=== PATIENT | male | born 1960 | race Caucasian/White ===

== ENCOUNTER 2017-07-15 00:16 | Observation (INO) | payer BC ==
[2017-07-15 00:26] VITALS: BMI 31.4
[2017-07-15] MEDS ORDERED: NS 1000 ML 1,000 ML ONE ×2 (01:27→02:47)
[2017-07-15] MEDS ORDERED: ZOFRAN INJ 4 MG VIAL ONE (01:27)
[2017-07-15] MEDS ORDERED: NS 1000 ML 1,000 ML IV ONE ×2 (01:28→03:31)
[2017-07-15] MEDS ORDERED: ZOFRAN INJ 4 MG VIAL IVP ONE (01:28)
[2017-07-15] MEDS ORDERED: MORPHINE SULFATE INJ 4 MG IVP ONE (02:52)
[2017-07-15] MEDS ORDERED: PEPCID 20 MG IV PREMIX* 20 MG/50 ML BAG IV ONE ×2 (02:52→03:04)
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
[2017-07-15 02:59] LABS: ALBUMIN 3.2 g/dL (3.4-5.0); CALCIUM 8.3 mg/dL (8.5-10.1); COR CA(FOR HYPOALB) 8.9 mg/dL (8.5-10.1); CREATININE 2.17 mg/dL (0.70-1.30); TOTAL PROTEIN 6.9 g/dL (6.4-8.2)
[2017-07-15 03:02] LABS: BASOPHILS # (AUTO) 0.1 X10^3/uL (0.0-0.1); BASOPHILS % (AUTO) 0.3 % (0.2-1.0); EOSINOPHILS # (AUTO) 5.6 x10^3/uL (0.0-0.2); EOSINOPHILS % (AUTO) 22.6 % (0.9-2.9); LYMPHOCYTES # (AUTO) 2.5 X10^3/uL (1.3-2.9); MEAN CORPUSCULAR HEMOGLOBIN 28.6 pg (27.0-34.0); MEAN CORPUSCULAR HGB CONC 34.2 g/dL (33.0-35.0); MEAN CORPUSCULAR VOLUME 83.5 fL (80.0-100.0); MEAN PLATELET VOLUME 9.9 fL (7.4-11.0); MONOCYTES # (AUTO) 1.4 x10^3/uL (0.3-0.8); MONOCYTES % (AUTO) 5.8 % (0.0-13.0); NEUTROPHILS # (AUTO) 15.2 x10^3/uL (2.2-4.8); NEUTROPHILS % (AUTO) 61.3 % (42.0-75.0); PLATELET COUNT 366 X10^3/uL (150.0-450.0); RED BLOOD COUNT 6.76 X10^6/uL (4.7-6.0); RED CELL DISTRIBUTION WIDTH 13.8 % (11.6-16.5); WHITE BLOOD COUNT 24.9 X10^3/uL (3.6-10.0)
[2017-07-15] MEDS ORDERED: MORPHINE SULFATE INJ 4 MG ONE (03:05)
[2017-07-15 03:11] LABS: HEMATOCRIT 56.4 % (42.0-54.0); HEMOGLOBIN 19.3 g/dL (13.5-18.0)
--- NOTE | 2017-07-15 03:25 | RAD ---
Acute abdominal series Indication: Nausea vomiting and diarrhea Comparison: None available Findings: The trachea is midline. The cardiac silhouette is unremarkable. The lungs are clear without focal i nfiltrate or effusion. The bony thorax is unremarkable. Left chest wall pacemaker is noted in expec roxana positioning. No significant fluid is noted within the loops of small bowel with multiple air-fluid levels within t he entire colon. No pathological soft tissue mass or calcification can be observed. The bony struct ures are grossly intact. IMPRESSION: 1. No acute cardiopulmonary disease. 2. Lack of gas within the small bowel with air-fluid levels throughout the colon is most consistent with fluid-filled loops of small bowel with an enterocolitis. No evidence of obstruction; however, in creased fluid within the colon is in keeping with the history of diarrhea. Reported By:
[2017-07-15 03:29] LABS: BAND NEUTROPHILS % 3 % (0-10); PLATELET MORPHOLOGY COMMENT NORMAL (NORMAL)
[2017-07-15 03:53] LABS: STOOL FOR WBC POSITIVE (NEGATIVE)
[2017-07-15] MEDS ORDERED: CIPRO IV 400 MG PREMIX* 400 MG/200 ML IV.SOLN. IV ONE ×2 (04:28→04:34)
[2017-07-15] MEDS: NS 1000 ML 1,000 ML IV SCH ×4 (04:41→22:25)
[2017-07-15] MEDS ORDERED: FLAGYL IV PREMIX 500 MG BAG 500 MG/100 ML BAG IV ONE ×2 (05:58→05:59)
[2017-07-15] MEDS ORDERED: PHENERGAN INJ 25 MG IVP PRN (06:36)
[2017-07-15] MEDS ORDERED: TYLENOL 325 MG TAB PO PRN (06:36)
[2017-07-15] MEDS ORDERED: ZOFRAN INJ 4 MG VIAL IVP PRN (06:36)
[2017-07-15] MEDS: FLAGYL IV PREMIX 500 MG BAG 500 MG/100 ML BAG IV SCH ×3 (09:51→20:23)
[2017-07-15] MEDS: MORPHINE SULFATE INJ 2 MG INJ IVP PRN ×3 (09:52→20:36)
[2017-07-15] MEDS: CIPRO IV 400 MG PREMIX* 400 MG/200 ML IV.SOLN. IV SCH ×2 (09:52→20:23)
[2017-07-15 10:00] LABS: CRYPTOSPORIDIUM PARVUM ANTIGEN NEGATIVE (NEGATIVE); GIARDIA LAMBLIA ANTIGEN NEGATIVE (NEGATIVE)
[2017-07-15 14:06] LABS: BILIRUBIN,URINE NEGATIVE (NEGATIVE); BLOOD/HEMOGLOBIN,URINE NEGATIVE (NEGATIVE); GLUCOSE, URINE 3+ (NEGATIVE); KETONES,URINE NEGATIVE (NEGATIVE); LEUKOCYTE ESTERASE ,URINE 1+ (NEGATIVE); NITRITES,URINE NEGATIVE (NEGATIVE); PROTEIN,URINE NEGATIVE (NEGATIVE); UROBILINOGEN,URINE NORMAL (NORMAL)
[2017-07-15 14:14] LABS: APPEARANCE,URINE CLEAR (CLEAR); BACTERIA,URINE TRACE /HPF (NEGATIVE); COLOR,URINE YELLOW (YELLOW); RBC,URINE NONE SEEN /HPF (NEGATIVE); SQUAMOUS EPITHELIAL CELL,UR FEW /HPF (NEGATIVE)
[2017-07-15] MEDS: PEPCID 20 MG IV PREMIX* 20 MG/50 ML BAG IV PRN (14:38)
[2017-07-15] MEDS ORDERED: PATIENT'S HOME MEDICATION (Melatonin [Melatonin] 10 MG) PO PRN (15:50)
[2017-07-15] MEDS ORDERED: ZOLOFT PO ONE (16:28)
[2017-07-15] MEDS: ZOLOFT PO SCH (16:42)
[2017-07-15] MEDS: CRESTOR TAB 10 MG PO SCH (20:23)
[2017-07-16] MEDS: NS 1000 ML 1,000 ML IV SCH ×6 (02:57→19:43)
[2017-07-16] MEDS: FLAGYL IV PREMIX 500 MG BAG 500 MG/100 ML BAG IV SCH ×4 (02:57→20:19)
[2017-07-16 04:34] LABS: BASOPHILS % (AUTO) 0.2 % (0.2-1.0); EOSINOPHILS # (AUTO) 3.4 x10^3/uL (0.0-0.2); EOSINOPHILS % (AUTO) 22.8 % (0.9-2.9); HEMATOCRIT 49.2 % (42.0-54.0); HEMOGLOBIN 16.8 g/dL (13.5-18.0); LYMPHOCYTES # (AUTO) 2.5 X10^3/uL (1.3-2.9); LYMPHOCYTES % (AUTO) 16.5 % (21.0-51.0); MEAN CORPUSCULAR HEMOGLOBIN 28.5 pg (27.0-34.0); MEAN CORPUSCULAR HGB CONC 34.2 g/dL (33.0-35.0); MEAN CORPUSCULAR VOLUME 83.3 fL (80.0-100.0); MEAN PLATELET VOLUME 9.1 fL (7.4-11.0); NEUTROPHILS # (AUTO) 7.9 x10^3/uL (2.2-4.8); NEUTROPHILS % (AUTO) 53.5 % (42.0-75.0); PLATELET COUNT 239 X10^3/uL (150.0-450.0); RED BLOOD COUNT 5.91 X10^6/uL (4.7-6.0); RED CELL DISTRIBUTION WIDTH 13.4 % (11.6-16.5); WHITE BLOOD COUNT 14.9 X10^3/uL (3.6-10.0)
[2017-07-16 05:00] LABS: ALANINE AMINOTRANSFERASE 30 Units/L (12-78); ALBUMIN 2.8 g/dL (3.4-5.0); ALKALINE PHOSPHATASE 109 Units/L (46-116); ASPARTATE AMINO TRANSFERASE 16 Units/L (15-37); BLOOD UREA NITROGEN 19 mg/dL (7-18); CALCIUM 7.8 mg/dL (8.5-10.1); CARBON DIOXIDE 23.2 mmol/L (21-32); CHLORIDE 106 mmol/L (98-107); COR CA(FOR HYPOALB) 8.8 mg/dL (8.5-10.1); COR NA(FOR HYPERGLY) 140 mmol/L (136-145); CREATININE 1.16 mg/dL (0.70-1.30); SODIUM 138 mmol/L (136-145); eGFR BLACK RACES > 60 (>60); eGFR NON BLACK RACES > 60 (>60)
[2017-07-16 06:12] LABS: BAND NEUTROPHILS % 0 % (0-10); PLATELET MORPHOLOGY COMMENT NORMAL (NORMAL)
[2017-07-16] MEDS ORDERED: ZOLOFT PO ONE (09:03)
[2017-07-16] MEDS: TOPROL XL PO SCH (09:35)
[2017-07-16] MEDS: ZOLOFT PO SCH (09:35)
[2017-07-16] MEDS: CIPRO IV 400 MG PREMIX* 400 MG/200 ML IV.SOLN. IV SCH ×2 (09:36→20:19)
[2017-07-16] MEDS: PLAVIX PO SCH (09:36)
[2017-07-16] MEDS ORDERED: LOMOTIL PO STA (15:46)
[2017-07-16] MEDS ORDERED: LOMOTIL PO PRN (15:47)
[2017-07-16] MEDS: HumuLIN R SC PRN (17:36)
[2017-07-16] MEDS: CRESTOR TAB 10 MG PO SCH (20:18)
[2017-07-17] MEDS: NS 1000 ML 1,000 ML IV SCH ×3 (01:41→20:50)
[2017-07-17] MEDS: PEPCID 20 MG IV PREMIX* 20 MG/50 ML BAG IV PRN (01:42)
[2017-07-17] MEDS: FLAGYL IV PREMIX 500 MG BAG 500 MG/100 ML BAG IV SCH ×4 (03:50→20:52)
[2017-07-17 04:28] LABS: BASOPHILS % (AUTO) 0.2 % (0.2-1.0); EOSINOPHILS # (AUTO) 3.5 x10^3/uL (0.0-0.2); EOSINOPHILS % (AUTO) 26.6 % (0.9-2.9); HEMATOCRIT 41.3 % (42.0-54.0); HEMOGLOBIN 14.2 g/dL (13.5-18.0); LYMPHOCYTES # (AUTO) 2.5 X10^3/uL (1.3-2.9); LYMPHOCYTES % (AUTO) 18.5 % (21.0-51.0); MEAN CORPUSCULAR HEMOGLOBIN 28.2 pg (27.0-34.0); MEAN CORPUSCULAR HGB CONC 34.3 g/dL (33.0-35.0); MEAN CORPUSCULAR VOLUME 82.1 fL (80.0-100.0); MEAN PLATELET VOLUME 9.2 fL (7.4-11.0); MONOCYTES # (AUTO) 0.8 x10^3/uL (0.3-0.8); MONOCYTES % (AUTO) 5.7 % (0.0-13.0); NEUTROPHILS # (AUTO) 6.5 x10^3/uL (2.2-4.8); PLATELET COUNT 202 X10^3/uL (150.0-450.0); RED BLOOD COUNT 5.03 X10^6/uL (4.7-6.0); RED CELL DISTRIBUTION WIDTH 13.1 % (11.6-16.5); WHITE BLOOD COUNT 13.3 X10^3/uL (3.6-10.0)
[2017-07-17 04:35] LABS: BLOOD UREA NITROGEN 8 mg/dL (7-18); CALCIUM 7.7 mg/dL (8.5-10.1); CARBON DIOXIDE 22.8 mmol/L (21-32); CHLORIDE 112 mmol/L (98-107); COR NA(FOR HYPERGLY) 145 mmol/L (136-145); CREATININE 0.86 mg/dL (0.70-1.30); SODIUM 144 mmol/L (136-145); eGFR BLACK RACES > 60 (>60); eGFR NON BLACK RACES > 60 (>60)
[2017-07-17 04:57] LABS: PLATELET MORPHOLOGY COMMENT NORMAL (NORMAL)
[2017-07-17 05:04] LABS: ALANINE AMINOTRANSFERASE 28 Units/L (12-78); ALBUMIN 2.4 g/dL (3.4-5.0); ALKALINE PHOSPHATASE 90 Units/L (46-116); ASPARTATE AMINO TRANSFERASE 16 Units/L (15-37); TOTAL PROTEIN 5.2 g/dL (6.4-8.2)
[2017-07-17] MEDS ORDERED: K-LYTE EFFERVESCENT PO ONE (05:41)
[2017-07-17] MEDS ORDERED: POTASSIUM CHLORIDE LIQ 20 MEQ UDC PO PRN (07:33)
[2017-07-17] MEDS ORDERED: MAGNESIUM SULFATE 1 GM/100 mL PREMIX 1 GM/100 ML BAG IV PRN (07:33)
[2017-07-17] MEDS ORDERED: K-RIDER 10 MEQ/NS 100 ML 10 MEQ/100 ML BAG IV PRN (07:33)
[2017-07-17] MEDS ORDERED: K-LYTE EFFERVESCENT PO PRN (07:33)
[2017-07-17] MEDS ORDERED: POTASSIUM CHL 60 MEQ/NS 0.45% 500 ML IV NR (08:00)
[2017-07-17] MEDS ORDERED: POTASSIUM CHL 40 MEQ/NS 0.45% 500 ML IV PRN (08:00)
[2017-07-17] MEDS ORDERED: ZOLOFT PO ONE (09:05)
[2017-07-17] MEDS: TOPROL XL PO SCH (09:24)
[2017-07-17] MEDS: MAG-OX TAB PO PRN ×2 (09:24→15:14)
[2017-07-17] MEDS: ZOLOFT PO SCH (09:25)
[2017-07-17] MEDS: PLAVIX PO SCH (09:27)
[2017-07-17] MEDS: CIPRO IV 400 MG PREMIX* 400 MG/200 ML IV.SOLN. IV SCH ×2 (09:28→20:51)
[2017-07-17] MEDS: SNACK - Diabetic Appropriate PO SCH ×2 (09:29→20:57)
[2017-07-17] MEDS: HumuLIN R SC PRN (12:29)
[2017-07-17] MEDS: CRESTOR TAB 10 MG PO SCH (20:51)
[2017-07-18] MEDS: FLAGYL IV PREMIX 500 MG BAG 500 MG/100 ML BAG IV SCH ×2 (03:03→10:10)
[2017-07-18 04:37] LABS: BASOPHILS % (AUTO) 0.3 % (0.2-1.0); EOSINOPHILS # (AUTO) 4.1 x10^3/uL (0.0-0.2); HEMATOCRIT 40.3 % (42.0-54.0); HEMOGLOBIN 13.8 g/dL (13.5-18.0); LYMPHOCYTES # (AUTO) 3.1 X10^3/uL (1.3-2.9); LYMPHOCYTES % (AUTO) 22.5 % (21.0-51.0); MEAN CORPUSCULAR HEMOGLOBIN 28.4 pg (27.0-34.0); MEAN CORPUSCULAR HGB CONC 34.4 g/dL (33.0-35.0); MEAN CORPUSCULAR VOLUME 82.7 fL (80.0-100.0); MEAN PLATELET VOLUME 9.1 fL (7.4-11.0); MONOCYTES # (AUTO) 0.7 x10^3/uL (0.3-0.8); MONOCYTES % (AUTO) 5.3 % (0.0-13.0); NEUTROPHILS # (AUTO) 5.7 x10^3/uL (2.2-4.8); NEUTROPHILS % (AUTO) 41.9 % (42.0-75.0); PLATELET COUNT 188 X10^3/uL (150.0-450.0); RED BLOOD COUNT 4.87 X10^6/uL (4.7-6.0); RED CELL DISTRIBUTION WIDTH 13.7 % (11.6-16.5); WHITE BLOOD COUNT 13.6 X10^3/uL (3.6-10.0)
[2017-07-18 04:47] LABS: ALANINE AMINOTRANSFERASE 24 Units/L (12-78); ALBUMIN 2.2 g/dL (3.4-5.0); ALKALINE PHOSPHATASE 77 Units/L (46-116); ASPARTATE AMINO TRANSFERASE 18 Units/L (15-37); BLOOD UREA NITROGEN 7 mg/dL (7-18); CALCIUM 7.9 mg/dL (8.5-10.1); CARBON DIOXIDE 25.9 mmol/L (21-32); CHLORIDE 110 mmol/L (98-107); COR CA(FOR HYPOALB) 9.3 mg/dL (8.5-10.1); COR NA(FOR HYPERGLY) 145 mmol/L (136-145); CREATININE 0.91 mg/dL (0.70-1.30); SODIUM 144 mmol/L (136-145); eGFR BLACK RACES > 60 (>60); eGFR NON BLACK RACES > 60 (>60)
[2017-07-18 05:09] LABS: PLATELET MORPHOLOGY COMMENT NORMAL (NORMAL)
[2017-07-18] MEDS: NS 1000 ML 1,000 ML IV SCH (05:22)
[2017-07-18] MEDS: HumuLIN R SC PRN (06:07)
[2017-07-18] MEDS: MAG-OX TAB PO PRN (06:19)
[2017-07-18] MEDS ORDERED: ZOLOFT PO ONE (08:48)
[2017-07-18] MEDS: CIPRO IV 400 MG PREMIX* 400 MG/200 ML IV.SOLN. IV SCH (09:05)
[2017-07-18] MEDS: PLAVIX PO SCH (09:06)
[2017-07-18] MEDS: ZOLOFT PO SCH (09:06)
[2017-07-18] MEDS: TOPROL XL PO SCH (09:06)
[2017-07-18 12:08] VITALS: BP 156/79
== END 2017-07-18 14:05 | disposition home or self-care (01) | DRG 392 ==
LOC: ER 00:16 → MED/SURG 06:26
PROVIDERS: ADMIT Internal Medicine; ATTEND Internal Medicine
DX: R10.84 Generalized abdominal pain (principal); E86.0 Dehydration; E11.22 Type 2 diabetes mellitus with diabetic chronic kidney disease; I12.9 Hypertensive chronic kidney disease with stage 1 through stage 4 chronic kidney disease, or unspecified chronic kidney disease; N18.9 Chronic kidney disease, unspecified; I25.10 Atherosclerotic heart disease of native coronary artery without angina pectoris; D72.828 Other elevated white blood cell count; R63.0 Anorexia; M79.1 Myalgia
CPT/HCPCS: 36415; 74022; 80053; 81001; 82150; 83630; 83690; 83735; 84132; 85025; 87045; 87328; 87329; 87336; 87427; 87493; 87899; 96365; 96367; 96374; 96375; 99218; 99284; A4222; S0028; S0030; G0378; J0744; J1815; J2270; J2405

== ENCOUNTER 2023-08-21 21:15 | Inpatient (IN) ==
--- NOTE | 2023-08-21 21:46 | EKG ---
Test Reason : CHEST PAIN Blood Pressure : */* mmHG Vent. Rate : 114 BPM Atrial Rate : 114 BPM P-R Int : 170 ms QRS Dur : 100 ms QT Int : 340 ms P-R-T Axes : 53 45 55 degrees QTc Int : 468 ms Sinus tachycardia Otherwise normal ECG No previous ECGs available Confirmed by Antonio Bazzi ([id number]) on 08/23/2023 7:57:54 AM Referred By: Confirmed By: Antonio Bazzi
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
[2023-08-21 21:55] LABS: BASOPHILS % (AUTO) 0.4 % (0.2-1.0); EOSINOPHILS % (AUTO) 0.3 % (0.9-2.9); HEMATOCRIT 43.8 % (42.0-54.0); HEMOGLOBIN 15.4 g/dL (13.5-18.0); LYMPHOCYTES # (AUTO) 0.8 X10^3/uL (1.3-2.9); LYMPHOCYTES % (AUTO) 6.9 % (21.0-51.0); MEAN CORPUSCULAR HEMOGLOBIN 28.2 pg (27.0-34.0); MEAN CORPUSCULAR HGB CONC 35.2 g/dL (33.0-35.0); MEAN CORPUSCULAR VOLUME 80.1 fL (80.0-100.0); MEAN PLATELET VOLUME 8.2 fL (7.4-11.0); MONOCYTES % (AUTO) 8.1 % (0.0-13.0); NEUTROPHILS # (AUTO) 9.9 x10^3/uL (2.2-4.8); NEUTROPHILS % (AUTO) 84.3 % (42.0-75.0); PLATELET COUNT 220 X10^3/uL (150.0-450.0); RED BLOOD COUNT 5.46 X10^6/uL (4.7-6.0); RED CELL DISTRIBUTION WIDTH 13.4 % (11.6-16.5); WHITE BLOOD COUNT 11.8 X10^3/uL (3.6-10.0)
[2023-08-21 22:00] LABS: INR 1.15 (0.8-1.3)
[2023-08-21 22:07] LABS: ALANINE AMINOTRANSFERASE 26 Units/L (12-78); ALKALINE PHOSPHATASE 123 Units/L (46-116); ASPARTATE AMINO TRANSFERASE 20 Units/L (15-37); BLOOD UREA NITROGEN 17 mg/dL (7-18); CALCIUM 9.4 mg/dL (8.5-10.1); CARBON DIOXIDE 24.8 mmol/L (21-32); CHLORIDE 97 mmol/L (98-107); COR NA(FOR HYPERGLY) 139 mmol/L (136-145); CREATINE KINASE 52 Units/L (39-308); CREATININE 1.24 mg/dL (0.70-1.30); GLUCOSE 309 mg/dL (65-99); POTASSIUM 3.5 mmol/L (3.5-5.1); SODIUM 134 mmol/L (136-145); TOTAL PROTEIN 7.6 g/dL (6.4-8.2); eGFR NON BLACK RACES > 60 (>60)
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
--- NOTE | 2023-08-21 23:54 | CT ---
PROCEDURE: CT Lumbar Spine without Contrast .HISTORY: Back and chest pain.TECHNIQUE: Axial images were performed through the lumbar spine without the administration of IV contrast with multiplanar reformations . Dose reduction techniques including Automated Exposure Control (AEC) and adjustment of mA and kV were utilized .COMPARISON: None .TECHNICAL QUALITY: Satisfactory .FINDINGS:No fracture or displacement.No disc space narrowing. Mild anterior spondylosis throughout the lumbar spine.No lytic or blastic lesions.Facet show normal alignment and spinous processes are unremarkable.No herniated disc or spinal canal stenosis.Neuroforamen show mild narrowing on the right at L4-L5.No paraspinal soft tissue abnormality.IMPRESSION:1. No acute bony abnormality.2. Mild lumbar spondylosis.3. Neuroforaminal narrowing on the right L4-L5.Electronically signed by: Tony Bob (Aug 21, 2023 23:52:58)
[2023-08-22] MEDS ORDERED: NORMODYNE INJ 20 MG VIAL ONE (00:04)
[2023-08-22] MEDS ORDERED: NORMODYNE INJ 20 MG VIAL IVP ONE (00:04)
[2023-08-22 00:05] LABS: BILIRUBIN,URINE NEGATIVE (NEGATIVE); BLOOD/HEMOGLOBIN,URINE NEGATIVE (NEGATIVE); GLUCOSE, URINE 4+ (NEGATIVE); KETONES,URINE 2+ (NEGATIVE); LEUKOCYTE ESTERASE ,URINE NEGATIVE (NEGATIVE); NITRITES,URINE NEGATIVE (NEGATIVE); PROTEIN,URINE 2+ (NEGATIVE); UROBILINOGEN,URINE NORMAL (NORMAL)
[2023-08-22] MEDS ORDERED: TYLENOL 500 MG TAB EXTRA STRENGTH PO ONE ×2 (00:05→00:06)
--- NOTE | 2023-08-22 00:07 | EKG ---
Test Reason : chest pain Blood Pressure : */* mmHG Vent. Rate : 102 BPM Atrial Rate : 102 BPM P-R Int : 150 ms QRS Dur : 102 ms QT Int : 358 ms P-R-T Axes : 21 44 44 degrees QTc Int : 466 ms Sinus tachycardia Otherwise normal ECG When compared with ECG of 21-AUG-2023 21:42, (Unconfirmed) No significant change was found Confirmed by Antonio Bazzi ([id number]) on 08/23/2023 7:57:48 AM Referred By: Confirmed By: Antonio Bazzi
[2023-08-22 00:11] LABS: APPEARANCE,URINE CLEAR (CLEAR); COLOR,URINE YELLOW (YELLOW)
[2023-08-22 00:12] LABS: BACTERIA,URINE NEGATIVE /HPF (NEGATIVE); RBC,URINE NONE SEEN /HPF (0-3); SQUAMOUS EPITHELIAL CELL,UR RARE /HPF (NEGATIVE)
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
[2023-08-22] MEDS ORDERED: HEPARIN SODIUM INJ 5000 UNITS IVP ONE ×2 (00:52→14:52)
[2023-08-22] MEDS ORDERED: XANAX PO ONE (00:59)
[2023-08-22] MEDS ORDERED: NovoLIN R (or HumuLIN R) IV ONE (01:01)
[2023-08-22] MEDS ORDERED: XANAX ONE (01:03)
[2023-08-22] MEDS ORDERED: NovoLIN R (or HumuLIN R) ONE ×2 (01:05→01:20)
[2023-08-22] MEDS ORDERED: HEPARIN SODIUM INJ 5000 UNITS ONE (01:10)
[2023-08-22] MEDS ORDERED: HEPARIN SODIUM IN D5W 25,000 UNITS/500 ML BAG ONE (01:10)
[2023-08-22] MEDS: HEPARIN SODIUM IN D5W 25,000 UNITS/500 ML BAG IV PRN (01:29)
[2023-08-22] MEDS ORDERED: ROCEPHIN VIAL 2 GRAMS IV ONE (05:00)
[2023-08-22] MEDS ORDERED: ROCEPHIN VIAL 2 GRAMS ONE (05:02)
[2023-08-22] MEDS ORDERED: NS 100 ML IV 100 ML ONE (05:02)
[2023-08-22] MEDS ORDERED: ROCEPHIN VIAL 2 GRAMS 2 G in NS 100 ML IV 100 ML IV ONE (05:06)
[2023-08-22 05:28] LABS: BASOPHILS # (AUTO) 0.1 X10^3/uL (0.0-0.1); BASOPHILS % (AUTO) 0.8 % (0.2-1.0); EOSINOPHILS # (AUTO) 0.1 x10^3/uL (0.0-0.2); EOSINOPHILS % (AUTO) 0.9 % (0.9-2.9); HEMATOCRIT 39.2 % (42.0-54.0); LYMPHOCYTES # (AUTO) 1.5 X10^3/uL (1.3-2.9); LYMPHOCYTES % (AUTO) 22.8 % (21.0-51.0); MEAN CORPUSCULAR HEMOGLOBIN 28.3 pg (27.0-34.0); MEAN CORPUSCULAR HGB CONC 35.7 g/dL (33.0-35.0); MEAN CORPUSCULAR VOLUME 79.1 fL (80.0-100.0); MEAN PLATELET VOLUME 8.1 fL (7.4-11.0); MONOCYTES # (AUTO) 0.7 x10^3/uL (0.3-0.8); MONOCYTES % (AUTO) 10.5 % (0.0-13.0); NEUTROPHILS # (AUTO) 4.2 x10^3/uL (2.2-4.8); PLATELET COUNT 215 X10^3/uL (150.0-450.0); RED BLOOD COUNT 4.96 X10^6/uL (4.7-6.0); RED CELL DISTRIBUTION WIDTH 13.5 % (11.6-16.5); WHITE BLOOD COUNT 6.4 X10^3/uL (3.6-10.0)
[2023-08-22 05:36] LABS: ALANINE AMINOTRANSFERASE 22 Units/L (12-78); ALBUMIN 3.4 g/dL (3.4-5.0); ALKALINE PHOSPHATASE 110 Units/L (46-116); ASPARTATE AMINO TRANSFERASE 18 Units/L (15-37); BLOOD UREA NITROGEN 14 mg/dL (7-18); CALCIUM 9.2 mg/dL (8.5-10.1); CARBON DIOXIDE 28.5 mmol/L (21-32); CHLORIDE 101 mmol/L (98-107); COR NA(FOR HYPERGLY) 138 mmol/L (136-145); CREATININE 1.07 mg/dL (0.70-1.30); GLUCOSE 197 mg/dL (65-99); POTASSIUM 3.5 mmol/L (3.5-5.1); SODIUM 136 mmol/L (136-145); TOTAL PROTEIN 6.7 g/dL (6.4-8.2); eGFR NON BLACK RACES > 60 (>60)
[2023-08-22 06:53] VITALS: BMI 22.9
[2023-08-22] MEDS ORDERED: DUONEB 0.5 MG/3 MG (3 mL) NEB ONE (07:45)
[2023-08-22] MEDS: ZITHROMAX INJ 500 MG VIAL 500 MG in NS 250 ML IV 250 ML IV SCH (08:00)
[2023-08-22] MEDS: PULMICORT NEB TX 0.5 MG NEB SCH ×2 (09:59→20:29)
[2023-08-22] MEDS: DUONEB 0.5 MG/3 MG (3 mL) NEB SCH ×4 (09:59→20:29)
[2023-08-22 10:52] LABS: ABG BASE EXCESS 2.5 mmol/L (-2.0-2.0); ABG HCO3 26.3 mmol/L (22-26)
[2023-08-22] MEDS: NovoLIN R (or HumuLIN R) SUBCUT PRN ×2 (11:11→20:46)
[2023-08-22 11:14] LABS: TSH (3RD GENERATION) 1.035 uIU/mL (0.358-3.74)
[2023-08-22 11:18] LABS: TOTAL PSA 2.28 ng/mL (0.13-4.0)
[2023-08-22 11:26] LABS: HEMOGLOBIN A1C 9.4 %
[2023-08-22] MEDS ORDERED: CATAPRES TAB 0.1 MG PO ONE (16:12)
[2023-08-22] MEDS: TOPROL XL PO SCH (16:19)
[2023-08-22] MEDS: COZAAR PO SCH (16:20)
--- NOTE | 2023-08-22 17:51 | CT ---
EXAM:CT ABDOMEN AND PELVIS WITH CONTRASTHISTORY:UNEXPLAINED WEIGHT LOSS;COMPARISON:None.TECHNIQUE:Axial CT images were obtained through the abdomen and pelvis after the intravenous administration of contrast. Coronal reformatted images were included.Informed written consent was obtained prior to contrast administration.All CT scans at this facility use dose modulation, iterative reconstruction, and/or weight based dosing when appropriate to reduce radiation dose to as low as reasonably achievable.FINDINGS:LOWER THORAX: Mild hypoventilatory changes at the lung bases.ABDOMEN:LIVER: Within normal limits.GALLBLADDER: Within normal limits.SPLEEN: Within normal limits.PANCREAS: Within normal limits.KIDNEYS: Scattered benign renal cystsADRENAL GLANDS: Within normal limits.GI TRACT: No inflammatory changesLYMPH NODES: No abnormally enlarged nodes.VESSELS: Mild diffuse athero sclerotic diseasePERITONEUM / RETROPERITONEUM: No free gas.PELVIS:BLADDER: Within normal limits.GENITALS: Within normal limits.BONES: Within normal limits.IMPRESSION:No acute findings in the abdomen or pelvis correlate with the patient's history of weight loss. No clear evidence of neoplasm.THIS IS AN ELECTRONICALLY VERIFIED FINAL REPORT08/22/2023 5:48 PM - Electronically signed by Sabas Dale MD
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
[2023-08-22] MEDS: SNACK - Diabetic Appropriate PO SCH (20:46)
[2023-08-23] MEDS: HEPARIN SODIUM IN D5W 25,000 UNITS/500 ML BAG IV PRN (02:06)
[2023-08-23 03:14] LABS: BASOPHILS # (AUTO) 0.1 X10^3/uL (0.0-0.1); EOSINOPHILS # (AUTO) 0.1 x10^3/uL (0.0-0.2); HEMATOCRIT 36.8 % (42.0-54.0); HEMOGLOBIN 13.2 g/dL (13.5-18.0); LYMPHOCYTES # (AUTO) 1.2 X10^3/uL (1.3-2.9); LYMPHOCYTES % (AUTO) 23.1 % (21.0-51.0); MEAN CORPUSCULAR HEMOGLOBIN 28.4 pg (27.0-34.0); MEAN CORPUSCULAR HGB CONC 35.8 g/dL (33.0-35.0); MEAN CORPUSCULAR VOLUME 79.4 fL (80.0-100.0); MEAN PLATELET VOLUME 8.1 fL (7.4-11.0); MONOCYTES # (AUTO) 0.7 x10^3/uL (0.3-0.8); MONOCYTES % (AUTO) 13.6 % (0.0-13.0); NEUTROPHILS % (AUTO) 59.3 % (42.0-75.0); PLATELET COUNT 174 X10^3/uL (150.0-450.0); RED BLOOD COUNT 4.64 X10^6/uL (4.7-6.0); RED CELL DISTRIBUTION WIDTH 13.4 % (11.6-16.5)
[2023-08-23 03:21] LABS: ALANINE AMINOTRANSFERASE 18 Units/L (12-78); ALBUMIN 3.1 g/dL (3.4-5.0); ALKALINE PHOSPHATASE 96 Units/L (46-116); ASPARTATE AMINO TRANSFERASE 16 Units/L (15-37); BLOOD UREA NITROGEN 10 mg/dL (7-18); CALCIUM 8.7 mg/dL (8.5-10.1); CARBON DIOXIDE 28.7 mmol/L (21-32); CHLORIDE 103 mmol/L (98-107); CHOL/HDL RATIO 7.4 (0.0-5.0); CHOLESTEROL 236 mg/dL (0-200); COR CA(FOR HYPOALB) 9.4 mg/dL (8.5-10.1); COR NA(FOR HYPERGLY) 139 mmol/L (136-145); CREATININE 0.85 mg/dL (0.70-1.30); GLUCOSE 176 mg/dL (65-99); HDL CHOLESTEROL 32 mg/dL (40-60); MAGNESIUM 1.7 mg/dL (2.0-2.9); POTASSIUM 3.3 mmol/L (3.5-5.1); SODIUM 137 mmol/L (136-145); TOTAL PROTEIN 6.4 g/dL (6.4-8.2); TRIGLYCERIDES 99 mg/dL (0-150); eGFR NON BLACK RACES > 60 (>60)
[2023-08-23] MEDS ORDERED: CONSULT PHARMACY - POTASSIUM & MAGNESIUM XX SCH (07:00)
[2023-08-23] MEDS: TOPROL XL PO SCH (08:52)
[2023-08-23] MEDS: COZAAR PO SCH (08:52)
[2023-08-23] MEDS: MAG-OX TAB PO SCH ×2 (08:52→11:26)
[2023-08-23] MEDS ORDERED: K-DUR TAB 20 MEQ PO ONE (09:00)
[2023-08-23] MEDS ORDERED: K-RIDER 10 MEQ/NS 100 ML 10 MEQ/100 ML BAG IV SCH (09:00)
[2023-08-23] MEDS ORDERED: MAGNESIUM SULFATE 1 GRAM/100 mL PREMIX 1 G/100 ML BAG IV SCH (09:00)
[2023-08-23] MEDS: PULMICORT NEB TX 0.5 MG NEB SCH ×2 (09:05→21:25)
[2023-08-23] MEDS: DUONEB 0.5 MG/3 MG (3 mL) NEB SCH ×4 (09:05→21:25)
[2023-08-23] MEDS: ROCEPHIN VIAL 2 GRAMS 2 G in NS 100 ML IV 100 ML IV SCH (09:14)
[2023-08-23] MEDS: ZITHROMAX INJ 500 MG VIAL 500 MG in NS 250 ML IV 250 ML IV SCH (10:21)
[2023-08-23] MEDS: ELIQUIS PO SCH ×2 (11:24→21:58)
[2023-08-23] MEDS: NovoLIN R (or HumuLIN R) SUBCUT PRN ×2 (13:24→22:14)
--- NOTE | 2023-08-23 18:19 | PCM.PROG ---
Progress Note Progress Note for Day of Date of Exam: 08/23/23 Subjective Subjective: PT IS 63 WM, ER ADMISSION WITH PNEUMONIA AND BILATERAL PE'S. PT IS CURRENTLY ON IV ATBX THERAPY. PT IS ON IV HEPARIN DRIP. O2 SAT AT 98% THIS AM. PO2 STABLE ON ROOM AIR ON ABG. PLAN TO CONVERT TO PO ELIQUIS. PLAN TO CONTINUE CURRENT RESP THERAPY AND BLOOD SUGAR CONTROL PT HAS REPORTS OF DYSPHAGIA FOR SEVERAL WEEKS. PT IS ON PPI THERAPY BID SINCE ADMISSION. PT HAS TOLERATED PO INTAKE SINCE ADMISSION WITHOUT VOMITING. PLAN TO REFER FOR GI WORK UP ON OUTPT BASIS. Past Medical Family Social History Allergies: Allergies No Known Drug Allergies Allergy (Verified 08/22/23 05:25) Vital Signs and I&O's Vital Signs: Vital Signs Pulse Rate 69 Pulse Rate 66 Pulse Rate 66 Pulse Rate 66 Pulse Rate 73 Pulse Rate 79 Pulse Rate 80 Pulse Rate 74 Respiratory Rate 37 Respiratory Rate 26 Respiratory Rate 24 Respiratory Rate 29 Respiratory Rate 35 Respiratory Rate 31 Respiratory Rate 35 Respiratory Rate 23 Blood Pressure 152/70 Blood Pressure 158/73 Blood Pressure 136/66 Blood Pressure 198/84 Blood Pressure 215/93 Blood Pressure 168/79 O2 Sat by Pulse Oximetry 100 O2 Sat by Pulse Oximetry 98 O2 Sat by Pulse Oximetry 96 O2 Sat by Pulse Oximetry 98 O2 Sat by Pulse Oximetry 100 O2 Sat by Pulse Oximetry 97 Intake and Output: Intake & Output 08/21/23 08/22/23 08/23/23 08/24/23 11:59 11:59 11:59 11:59 Intake Total 1337 / 1337 1095 / 1095 Output Total 1400 / 1400 800 / 800 Balance -63 / -63 295 / 295 Physical Exam Oriented: Normal Eyes: Normal Ear: Normal Nose: Normal Throat: Dry Cardiovascular: Other (PACEMAKER PRESENT) : Normal Tenderness: Epigastric and Mild Skin: Decreased Turgur Psychiatric: Depression Mood Description: Depressed Speech Pattern: Clear and Appropriate Laboratory and Diagnostics 08/23/23 03:00 08/23/23 03:00 Labs: Laboratory WBC 5.0 X10^3/uL (3.6-10.0) 08/23/23 03:00 RBC 4.64 X10^6/uL (4.7-6.0) L 08/23/23 03:00 Hgb 13.2 g/dL (13.5-18.0) L 08/23/23 03:00 Hct 36.8 % (42.0-54.0) L 08/23/23 03:00 MCV 79.4 fL (80.0-100.0) L 08/23/23 03:00 MCH 28.4 pg (27.0-34.0) 08/23/23 03:00 MCHC 35.8 g/dL (33.0-35.0) H 08/23/23 03:00 RDW 13.4 % (11.6-16.5) 08/23/23 03:00 Plt Count 174 X10^3/uL (150.0-450.0) 08/23/23 03:00 MPV 8.1 fL (7.4-11.0) 08/23/23 03:00 Neut % (Auto) 59.3 % (42.0-75.0) 08/23/23 03:00 Lymph % (Auto) 23.1 % (21.0-51.0) 08/23/23 03:00 [place] % (Auto) 13.6 % (0.0-13.0) H 08/23/23 03:00 Eos % (Auto) 3.0 % (0.9-2.9) H 08/23/23 03:00 Baso % (Auto) 1.0 % (0.2-1.0) 08/23/23 03:00 Neut # (Auto) 3.0 x10^3/uL (2.2-4.8) 08/23/23 03:00 Lymph # (Auto) 1.2 X10^3/uL (1.3-2.9) L 08/23/23 03:00 [place] # (Auto) 0.7 x10^3/uL (0.3-0.8) 08/23/23 03:00 Eos # (Auto) 0.1 x10^3/uL (0.0-0.2) 08/23/23 03:00 Baso # (Auto) 0.1 X10^3/uL (0.0-0.1) 08/23/23 03:00 Absolute Nucleated RBC 0.1 /100WBC 08/23/23 03:00 PT 14.5 SECONDS (11.8-14.3) 08/21/23 21:40 INR Target Range - 08/21/23 21:40 INR 1.15 (0.8-1.3) 08/21/23 21:40 APTT 33.7 SECONDS (22.9-36.5) 08/23/23 15:12 PTT Comment - 08/23/23 15:12 D-Dimer 1.00 ug/ml (0.0-0.57) H 08/21/23 21:40 Sample Site Rbr 08/22/23 10:50 ABG pH 7.460 (7.35-7.45) H 08/22/23 10:50 ABG pCO2 37.0 mmHg (35.0-45.0) 08/22/23 10:50 ABG pO2 85.0 mmHg (80.0-100.0) 08/22/23 10:50 ABG HCO3 26.3 mmol/L (22-26) H 08/22/23 10:50 ABG O2 Saturation 97.0 % (90-100) 08/22/23 10:50 ABG Base Excess 2.5 mmol/L (-2.0-2.0) H 08/22/23 10:50 [place] Test Na 08/22/23 10:50 A-a Gradient -117.0 mmHg 08/22/23 10:50 FiO2 2.0 08/22/23 10:50 Blood Gas Comments Pt saida well. eb/kg 08/22/23 10:50 Sodium 137 mmol/L (136-145) 08/23/23 03:00 Corrected Sodium 139 mmol/L (136-145) 08/23/23 03:00 Potassium 3.3 mmol/L (3.5-5.1) L 08/23/23 03:00 Chloride 103 mmol/L (98-107) 08/23/23 03:00 Carbon Dioxide 28.7 mmol/L (21-32) 08/23/23 03:00 BUN 10 mg/dL (7-18) 08/23/23 03:00 Creatinine 0.85 mg/dL (0.70-1.30) 08/23/23 03:00 Est GFR (MDRD) Af Amer > 60 (>60) 08/23/23 03:00 Est GFR (MDRD) Non-Af > 60 (>60) 08/23/23 03:00 Glucose 176 mg/dL (65-99) H 08/23/23 03:00 POC Glucose (mg/dL) 158 mg/dL (65-99) H 08/23/23 16:59 Hemoglobin A1c 9.4 % 08/22/23 05:10 Calcium 8.7 mg/dL (8.5-10.1) 08/23/23 03:00 Corrected Calcium 9.4 mg/dL (8.5-10.1) 08/23/23 03:00 Magnesium 1.7 mg/dL (2.0-2.9) L 08/23/23 03:00 Total Bilirubin 0.70 mg/dL (0.2-1.0) 08/23/23 03:00 AST 16 Units/L (15-37) 08/23/23 03:00 ALT 18 Units/L (12-78) 08/23/23 03:00 Alkaline Phosphatase 96 Units/L (46-116) 08/23/23 03:00 Lactate Dehydrogenase 240 Units/L (85-227) H 08/22/23 05:10 Creatine Kinase 52 Units/L (39-308) 08/21/23 21:40 Troponin I High Sens 52.5 ng/L (4.0-60.0) 08/22/23 00:10 B-Natriuretic Peptide 11.8 pg/mL (0-79) 08/21/23 21:40 Total Protein 6.4 g/dL (6.4-8.2) 08/23/23 03:00 Albumin 3.1 g/dL (3.4-5.0) L 08/23/23 03:00 Globulin 3.3 g/dL (2.5-4.5) 08/23/23 03:00 Albumin/Globulin Ratio 0.9 Ratio (1.1-2.1) L 08/23/23 03:00 Triglycerides 99 mg/dL (0-150) 08/23/23 03:00 Cholesterol 236 mg/dL (0-200) H 08/23/23 03:00 LDL Cholesterol, Calc 184 mg/dL (0-100) H 08/23/23 03:00 HDL Cholesterol 32 mg/dL (40-60) L 08/23/23 03:00 Cholesterol/HDL Ratio 7.4 (0.0-5.0) H 08/23/23 03:00 Total PSA 2.28 ng/mL (0.13-4.0) 08/22/23 05:10 TSH 3rd Generation 1.035 uIU/mL (0.358-3.74) 08/22/23 05:10 Specimen Type Clean catch urine 08/21/23 23:38 Urine Color Yellow (YELLOW) 08/21/23 23:38 Urine Appearance Clear (CLEAR) 08/21/23 23:38 Urine pH 6.0 (5.0 - 8.0) 08/21/23 23:38 Ur Specific [place] 1.020 (1.000-1.030) 08/21/23 23:38 Urine Protein 2+ (NEGATIVE) 08/21/23 23:38 Urine Glucose (UA) 4+ (NEGATIVE) 08/21/23 23:38 Urine Ketones 2+ (NEGATIVE) 08/21/23 23:38 Urine Blood Negative (NEGATIVE) 08/21/23 23:38 Urine Nitrite Negative (NEGATIVE) 08/21/23 23:38 Urine Bilirubin Negative (NEGATIVE) 08/21/23 23:38 Urine Urobilinogen Normal (NORMAL) 08/21/23 23:38 Ur Leukocyte Esterase Negative (NEGATIVE) 08/21/23 23:38 Urine RBC None seen /HPF (0-3) 08/21/23 23:38 Urine WBC None seen /HPF (0-5) 08/21/23 23:38 Ur Squamous Epith Cells Rare /HPF (NEGATIVE) 08/21/23 23:38 Urine Bacteria Negative /HPF (NEGATIVE) 08/21/23 23:38 Ur Culture Indicated? No/not indicated 08/21/23 23:38 Resp Viral Panel (PCR) See scanned report 08/22/23 06:30 Plan (1) Multiple pulmonary emboli: Status: Acute Narrative Support Text: ANTICOAGULANT THERAPY IV HYDRATION BS AND BP CONTROL RESP THERAPY (2) Acute hypotension: Status: Acute (3) Bilateral pneumonia: Status: Acute (4) Dehydration: Status: Acute (5) Unexplained weight loss: Status: Acute (6) Dysphagia: Status: Acute
[2023-08-23] MEDS: SNACK - Diabetic Appropriate PO SCH (22:14)
[2023-08-24] MEDS: NovoLIN R (or HumuLIN R) SUBCUT PRN ×3 (05:57→20:52)
[2023-08-24 06:27] LABS: HEMOGLOBIN 13.5 g/dL (13.5-18.0); WHITE BLOOD COUNT 4.7 X10^3/uL (3.6-10.0)
[2023-08-24 06:38] LABS: BASOPHILS # (AUTO) 0.1 X10^3/uL (0.0-0.1); BASOPHILS % (AUTO) 1.1 % (0.2-1.0); EOSINOPHILS # (AUTO) 0.2 x10^3/uL (0.0-0.2); EOSINOPHILS % (AUTO) 3.5 % (0.9-2.9); HEMATOCRIT 38.3 % (42.0-54.0); LYMPHOCYTES # (AUTO) 1.1 X10^3/uL (1.3-2.9); LYMPHOCYTES % (AUTO) 24.5 % (21.0-51.0); MEAN CORPUSCULAR HEMOGLOBIN 28.3 pg (27.0-34.0); MEAN CORPUSCULAR HGB CONC 35.2 g/dL (33.0-35.0); MEAN CORPUSCULAR VOLUME 80.3 fL (80.0-100.0); MEAN PLATELET VOLUME 8.5 fL (7.4-11.0); MONOCYTES # (AUTO) 0.6 x10^3/uL (0.3-0.8); MONOCYTES % (AUTO) 13.3 % (0.0-13.0); NEUTROPHILS # (AUTO) 2.7 x10^3/uL (2.2-4.8); NEUTROPHILS % (AUTO) 57.6 % (42.0-75.0); PLATELET COUNT 186 X10^3/uL (150.0-450.0); RED BLOOD COUNT 4.77 X10^6/uL (4.7-6.0); RED CELL DISTRIBUTION WIDTH 13.3 % (11.6-16.5)
[2023-08-24 06:43] LABS: ALANINE AMINOTRANSFERASE 17 Units/L (12-78); ALBUMIN 3.1 g/dL (3.4-5.0); ALKALINE PHOSPHATASE 95 Units/L (46-116); ASPARTATE AMINO TRANSFERASE 20 Units/L (15-37); BLOOD UREA NITROGEN 13 mg/dL (7-18); CALCIUM 8.9 mg/dL (8.5-10.1); CARBON DIOXIDE 26.5 mmol/L (21-32); CHLORIDE 104 mmol/L (98-107); COR CA(FOR HYPOALB) 9.6 mg/dL (8.5-10.1); COR NA(FOR HYPERGLY) 141 mmol/L (136-145); CREATININE 0.99 mg/dL (0.70-1.30); GLUCOSE 163 mg/dL (65-99); POTASSIUM 3.7 mmol/L (3.5-5.1); SODIUM 139 mmol/L (136-145); TOTAL PROTEIN 6.5 g/dL (6.4-8.2); eGFR NON BLACK RACES > 60 (>60)
[2023-08-24] MEDS ORDERED: K-DUR TAB 20 MEQ PO SCH (08:00)
[2023-08-24] MEDS: DUONEB 0.5 MG/3 MG (3 mL) NEB SCH ×4 (08:43→20:35)
[2023-08-24] MEDS: PULMICORT NEB TX 0.5 MG NEB SCH ×2 (08:44→20:35)
[2023-08-24] MEDS ORDERED: CONSULT PHARMACY - POTASSIUM & MAGNESIUM XX SCH (09:00)
[2023-08-24] MEDS ORDERED: NS 250 ML IV 250 ML IV ONE (09:05)
[2023-08-24] MEDS: COZAAR PO SCH (09:13)
[2023-08-24] MEDS: ROCEPHIN VIAL 2 GRAMS 2 G in NS 100 ML IV 100 ML IV SCH (09:14)
[2023-08-24] MEDS: TOPROL XL PO SCH (09:14)
[2023-08-24] MEDS: ELIQUIS PO SCH ×2 (09:14→20:52)
[2023-08-24] MEDS: ZITHROMAX INJ 500 MG VIAL 500 MG in NS 250 ML IV 250 ML IV SCH (10:51)
[2023-08-24] MEDS: MILK OF MAGNESIA PO PRN (12:50)
[2023-08-24] MEDS: SNACK - Diabetic Appropriate PO SCH (20:53)
--- NOTE | 2023-08-25 06:18 | RAD ---
EXAM:CHEST, 1 VIEWHISTORY:PNEUMONIA;COMPARISON: 024.TECHNIQUE:AP view of the chestFINDINGS:Left chest wall pacemaker with leads in the right atrium and right ventricle. The cardiac and mediastinal contours are normal in size. No consolidation or segmental lung collapse. No definite pleural effusion or pneumothorax.IMPRESSION:No acute pulmonary process.THIS IS AN ELECTRONICALLY VERIFIED FINAL REPORT08/25/2023 6:15 AM - Electronically signed by Santiago Strong MD
[2023-08-25 06:41] LABS: BASOPHILS % (AUTO) 0.4 % (0.2-1.0); EOSINOPHILS % (AUTO) 0.2 % (0.9-2.9); HEMATOCRIT 42.3 % (42.0-54.0); HEMOGLOBIN 14.9 g/dL (13.5-18.0); LYMPHOCYTES # (AUTO) 0.8 X10^3/uL (1.3-2.9); LYMPHOCYTES % (AUTO) 8.9 % (21.0-51.0); MEAN CORPUSCULAR HGB CONC 35.2 g/dL (33.0-35.0); MEAN CORPUSCULAR VOLUME 79.4 fL (80.0-100.0); MEAN PLATELET VOLUME 8.5 fL (7.4-11.0); MONOCYTES # (AUTO) 0.5 x10^3/uL (0.3-0.8); MONOCYTES % (AUTO) 5.3 % (0.0-13.0); NEUTROPHILS # (AUTO) 7.8 x10^3/uL (2.2-4.8); NEUTROPHILS % (AUTO) 85.2 % (42.0-75.0); PLATELET COUNT 221 X10^3/uL (150.0-450.0); RED BLOOD COUNT 5.33 X10^6/uL (4.7-6.0); RED CELL DISTRIBUTION WIDTH 13.4 % (11.6-16.5); WHITE BLOOD COUNT 9.1 X10^3/uL (3.6-10.0)
[2023-08-25 07:02] LABS: ALANINE AMINOTRANSFERASE 32 Units/L (12-78); ALBUMIN 3.5 g/dL (3.4-5.0); ALKALINE PHOSPHATASE 110 Units/L (46-116); ASPARTATE AMINO TRANSFERASE 35 Units/L (15-37); BLOOD UREA NITROGEN 17 mg/dL (7-18); CALCIUM 9.2 mg/dL (8.5-10.1); CARBON DIOXIDE 25.6 mmol/L (21-32); CHLORIDE 101 mmol/L (98-107); CREATININE 0.92 mg/dL (0.70-1.30); GLUCOSE 106 mg/dL (65-99); POTASSIUM 4.1 mmol/L (3.5-5.1); SODIUM 137 mmol/L (136-145); TOTAL PROTEIN 7.4 g/dL (6.4-8.2); eGFR NON BLACK RACES > 60 (>60)
[2023-08-25] MEDS: TOPROL XL PO SCH (08:43)
[2023-08-25] MEDS: COZAAR PO SCH (08:43)
[2023-08-25] MEDS: MILK OF MAGNESIA PO PRN (08:43)
[2023-08-25] MEDS: ELIQUIS PO SCH (08:43)
[2023-08-25] MEDS: ROCEPHIN VIAL 2 GRAMS 2 G in NS 100 ML IV 100 ML IV SCH (08:43)
[2023-08-25] MEDS: ZITHROMAX INJ 500 MG VIAL 500 MG in NS 250 ML IV 250 ML IV SCH (09:33)
[2023-08-25 09:39] VITALS: BP 145/63; RESP 20; TEMP 97.7
[2023-08-25] MEDS: PULMICORT NEB TX 0.5 MG NEB SCH (09:50)
[2023-08-25] MEDS: DUONEB 0.5 MG/3 MG (3 mL) NEB SCH (09:50)
[2023-08-25 09:55] VITALS: PULSE 68; O2SAT 98
[2023-08-30] MEDS ORDERED: ELIQUIS PO SCH (09:00)
== END 2023-08-25 12:05 | disposition home or self-care (01) | DRG 175 ==
LOC: ER 21:15 → ICU 08-22 04:58 → MED/SURG 08-23 14:56
PROVIDERS: ADMIT Internal Medicine; ATTEND Internal Medicine
DX: I95.9 Hypotension, unspecified; Z95.0 Presence of cardiac pacemaker; R07.89 Other chest pain; I26.99 Other pulmonary embolism without acute cor pulmonale; E11.65 Type 2 diabetes mellitus with hyperglycemia; E86.0 Dehydration; R79.1 Abnormal coagulation profile; R13.11 Dysphagia, oral phase; I10 Essential (primary) hypertension; M54.59 Other low back pain; R00.0 Tachycardia, unspecified; T76.11XA Adult physical abuse, suspected, initial encounter; R63.4 Abnormal weight loss; R53.1 Weakness; J18.8 Other pneumonia, unspecified organism